=== PATIENT | female | born 2000 | race African-American/Black ===

== ENCOUNTER 2020-09-03 22:06 | Emergency (ER) | payer OTHER ==
[~2020-09-03] VITALS: Ht 162.6 cm; Wt 45.3 kg
[2020-09-03] MEDS ORDERED: NS 100 ML (IVPB) BAG IV ONE (22:30)
[2020-09-03] MEDS ORDERED: IOHEXOL 350 MG/ML 100 ML (OMNIPAQUE 350) VIAL IV ONE (22:30)
[2020-09-03] MEDS ORDERED: NS IV 1000 ML 1,000 ML IV SCH (22:30)
[2020-09-03] MEDS ORDERED: HOLD METFORMIN - RECEIVED CONTRAST 20 ML VIAL IV SCH (22:30)
[2020-09-03 22:42] LABS: BASOPHILS % (AUTO) 1 % (0-10); EOSINOPHILS % (AUTO) 2 % (0-10); HEMATOCRIT 39 % (35-52); HEMOGLOBIN 12.5 G/DL (11.5-16.0); LYMPHOCYTES % (AUTO) 13 % (12-44); MEAN CORPUSCULAR HEMOGLOBIN 29 PG (25-34); MEAN CORPUSCULAR HGB CONC 33 G/DL (32-36); MEAN CORPUSCULAR VOLUME 88 FL (80-99); MONOCYTES % (AUTO) 11 % (0-12); NEUTROPHILS % (AUTO) 74 % (42-75); PLATELET COUNT 267 10^3/uL (130-400); WHITE BLOOD COUNT 11.8 10^3/uL (4.3-11.0)
[2020-09-03 22:43] LABS: BASOPHILS # (AUTO) 0.1 10^3/uL (0.0-0.1); EOSINOPHILS # (AUTO) 0.2 10^3/uL (0.0-0.3); LYMPHOCYTES # (AUTO) 1.5 X 10^3 (1.0-4.0); MONOCYTES # (AUTO) 1.3 X 10^3 (0.0-1.0); NEUTROPHILS # (AUTO) 8.7 X 10^3 (1.8-7.8)
--- NOTE | 2020-09-03 22:56 | ED EENT ---
History of Present Illness General Chief Complaint: Oral/Throat Problems Stated Complaint: DIFFICULTY SWALLOWING Nursing Triage Note: pt states sore throat x 2 days, went to urgent care yesterday and started on augmentin but no relief yet. Pt states right tonsil is swollen and sore. Pt able to talk without difficulty. Source: patient Exam Limitations: no limitations History of Present Illness Date Seen by Provider: September 03, 2020 Time Seen by Provider: 22:15 Initial Comments Patient is a 20-year-old -[place] female who presents with 6 days of sore throat. She was evaluated by her PCP yesterday and diagnosed with strep pharyngitis with peritonsillar abscess and started on amoxicillin. She has had 2 doses. She reports worsening pain with painful swallowing. She does not have drooling dysphagia dysphonia or trismus. She does not have appreciable facial swelling or rash. 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 No fever chills or sweats. No other symptoms or complaints. Timing/Duration: gradual Severity: moderate Location: throat Prearrival Treatment: prescription meds Modifying Factors: Improves With Activity, Improves With Other Associated Symptoms: other Allergies and Home Medications Allergies Coded Allergies: No Known Drug Allergies (Unverified , 09/03/20) Patient Home Medication List Home Medication List Reviewed: Yes Review of Systems Review of Systems Constitutional: no symptoms reported Eyes: No Symptoms Reported Ears: No Symptoms Reported Nose: no symptoms reported Mouth: no symptoms reported Throat: no symptoms reported Respiratory: no symptoms reported Cardiovascular: no symptoms reported Gastrointestinal: no symptoms reported Musculoskeletal: no symptoms reported Skin: no symptoms reported Neurological: No Symptoms Reported Hematologic/Lymphatic: No Symptoms Reported Immunological/Allergic: no symptoms reported Past Mrnfiwh-Tkhbjk-Cxhrpo Hx Past Med/Social Hx: Reviewed Nursing Past Med/Soc Hx Patient Social History Alcohol Use: Denies Use Smoking Status: Never a Smoker 2nd Hand Smoke Exposure: No Recent Infectious Disease Expo: No Recent Hopitalizations: No Seasonal Allergies Seasonal Allergies: No Past Medical History Surgeries: No Respiratory: No Cardiac: No Neurological: No Genitourinary: No Gastrointestinal: No Musculoskeletal: No Endocrine: No HEENT: No Cancer: No Psychosocial: No Integumentary: No Blood Disorders: No Physical Exam Vital Signs Vital Signs - First Documented 09/03/20 22:19 Temp 36.7 Pulse 88 Resp 18 B/P (MAP) 98/54 (69) Pulse Ox 99 Height, Weight, BMI Height: '" Weight: lbs. oz. kg; 17.00 BMI Method: General Appearance: WD/WN, no apparent distress Eyes: bilateral eye normal inspection, bilateral eye PERRL, bilateral eye EOMI Ears: bilateral ear auricle normal, bilateral ear canal normal Nose: normal inspection, discharge Mouth/Throat: pharynx tenderness; No tongue swollen, No tonsillar exudate, No tonsillar swelling, No trismus; uvula swelling; No voice changes; other (Right peritonsillar abscess with uvular deviation to the left with parapharyngeal induration with cellulitis) Neck: non-tender, supple Cardiovascular: normal peripheral pulses, regular rate, rhythm, no gallop Respiratory: lungs clear Gastrointestinal: non tender, soft Neurologic/Psychiatric: pediatric medical assistant II-XII nml as tested, no motor/sensory deficits, alert Skin: other Progress/Results/Core Measures Results/Orders Lab Results Laboratory Tests Test 09/03/20 22:30 Range/Units White Blood Count 11.8 H 4.3-11.0 10^3/uL Red Blood Count 4.38 4.35-5.85 10^6/uL Hemoglobin 12.5 11.5-16.0 G/DL Hematocrit 39 35-52 % Mean Corpuscular Volume 88 80-99 FL Mean Corpuscular Hemoglobin 29 25-34 PG Mean Corpuscular Hemoglobin Concent 33 32-36 G/DL Red Cell Distribution Width 12.1 10.0-14.5 % Platelet Count 267 130-400 10^3/uL Mean Platelet Volume 10.0 7.4-10.4 FL Immature Granulocyte % (Auto) 0 % Neutrophils (%) (Auto) 74 42-75 % Lymphocytes (%) (Auto) 13 12-44 % Monocytes (%) (Auto) 11 0-12 % Eosinophils (%) (Auto) 2 0-10 % Basophils (%) (Auto) 1 0-10 % Neutrophils # (Auto) 8.7 H 1.8-7.8 X 10^3 Lymphocytes # (Auto) 1.5 1.0-4.0 X 10^3 Monocytes # (Auto) 1.3 H 0.0-1.0 X 10^3 Eosinophils # (Auto) 0.2 0.0-0.3 10^3/uL Basophils # (Auto) 0.1 0.0-0.1 10^3/uL Immature Granulocyte # (Auto) 0.1 0.0-0.1 10^3/uL Sodium Level 137 135-145 MMOL/L Potassium Level 3.9 3.6-5.0 MMOL/L Chloride Level 99 98-107 MMOL/L Carbon Dioxide Level 29 21-32 MMOL/L Anion Gap 9 5-14 MMOL/L Blood Urea Nitrogen 13 7-18 MG/DL Creatinine 0.75 0.60-1.30 MG/DL Estimat Glomerular Filtration Rate > 60 BUN/Creatinine Ratio 17 Glucose Level 98 70-105 MG/DL Calcium Level 9.2 8.5-10.1 MG/DL Corrected Calcium 9.0 8.5-10.1 MG/DL Total Bilirubin 0.4 0.1-1.0 MG/DL Aspartate Amino Transf (AST/SGOT) 15 5-34 U/L Alanine Aminotransferase (ALT/SGPT) 10 0-55 U/L Alkaline Phosphatase 58 40-136 U/L C-Reactive Protein 4.21 H <0.50 MG/DL Total Protein 7.9 6.4-8.2 GM/DL Albumin 4.3 3.2-4.5 GM/DL My Orders Orders - IRIS JOHNSON DO Cbc With Automated Diff (09/03/20 22:21) Comprehensive Metabolic Panel (09/03/20 22:21) Crp Fs (09/03/20 22:21) Urine Bedside (09/03/20 22:21) Ns Iv 1000 Ml (Sodium Chloride 0.9%) (09/03/20 22:30) Ct Neck (Soft Tissue) W (09/03/20 22:21) Iohexol Injection (Omnipaque 350 Mg/Ml 1 (09/03/20 22:30) Received Contrast (Hold Metformin- Contr (09/03/20 22:30) Ns (Ivpb) (Sodium Chloride 0.9% Ivpb Bag (09/03/20 22:30) Medications Given in ED Current Medications Medications Dose Ordered Sig/Elizabeth Route Start Time Stop Time Status Last Admin Dose Admin Iohexol 75 ml ONCE ONCE IV 09/03/20 22:30 09/03/20 22:31 DC 09/03/20 23:04 75 ML Sodium Chloride 100 ml ONCE ONCE IV 09/03/20 22:30 09/03/20 22:31 DC 09/03/20 23:04 100 ML Vital Signs/I&O 09/03/20 22:19 Temp 36.7 Pulse 88 Resp 18 B/P (MAP) 98/54 (69) Pulse Ox 99 Blood Pressure Mean: 69 Departure Communication (Admissions) CT neck soft tissue: Right peritonsillar abscess with extension into prevertebral space. Patient with peritonsillar abscess with extension to the prevertebral space. IV clindamycin and Decadron given. No local ENT on-call. Patient accepted to [facility] urgency department per Dr. Lilly with ENT resident to see on arrival. Impression Primary Impression: Peritonsillar abscess Disposition: XF SHT-TRM HOSP Condition: Stable Admissions Decision to Admit Reason: Admit from ER (General) Transfer Transfer Reason: Exceeds level of care Method of Transfer: EMS Departure-Patient Inst. Referrals: NO,LOCAL PHYSICIAN (PCP/Family) Primary Care Physician IRIS JOHNSON DO September 03, 2020 22:56
[2020-09-03 23:02] LABS: BUN/CREATININE RATIO 17; CARBON DIOXIDE 29 MMOL/L (21-32); CHLORIDE 99 MMOL/L (98-107); CREATININE SERUM 0.75 MG/DL (0.60-1.30); GFR ESTIMATED > 60; POTASSIUM 3.9 MMOL/L (3.6-5.0); SODIUM 137 MMOL/L (135-145)
[2020-09-03 23:03] LABS: ALANINE AMINOTRANSFERASE 10 U/L (0-55); ALBUMIN 4.3 GM/DL (3.2-4.5); ALKALINE PHOSPHATASE 58 U/L (40-136); BILIRUBIN,TOTAL 0.4 MG/DL (0.1-1.0); CALCIUM 9.2 MG/DL (8.5-10.1); GLUCOSE 98 MG/DL (70-105); TOTAL PROTEIN 7.9 GM/DL (6.4-8.2)
[2020-09-04 01:57] VITALS: BP 115/53
--- NOTE | 2020-09-04 06:06 | Diagnostic Imaging Report ---
PROCEDURE: CT neck soft tissue with contrast. TECHNIQUE: Multiple contiguous axial images were obtained through the neck after the administration of contrast. Auto Exposure Controls were utilized during the CT exam to meet ALARA standards for radiation dose reduction. INDICATION: Sore throat for 6 days, patient is on Augmentin. FINDINGS: There is a right peritonsillar abscess which shows large volume of fluid measuring approximately 3 cm. This does show enhancement about the rim. There is mild distortion of the adjacent parapharyngeal tissue planes. Left tonsil appears normal. The hypopharynx, larynx and trachea appear normal. Retropharyngeal tissue planes showed trace of fluid. Mild enlargement of the adjacent cervical chain lymph nodes. The parotid and submandibular glands appear normal. Epiglottis is normal. IMPRESSION: Large right tonsillar abscess. These findings are concordant with the preliminary report. Dictated by: Dictated on workstation # [id number]
== END 2020-09-04 01:57 | disposition short-term general hospital (02) ==
LOC: ER FS 22:08
DX: J36 Peritonsillar abscess (principal)
CPT/HCPCS: 36415; 70491; 80053; 84703; 85025; 86141